=== PATIENT | female | born 1985 | race African-American/Black ===

== ENCOUNTER 2017-12-29 08:36 | Emergency (ER) | payer BC, OTHER ==
[~2017-12-29] VITALS: Ht 162.6 cm; Wt 68.0 kg
[~2017-12-29 08:36] MED LIST: ACETAMINOPHEN500 M1 PO; DERMOPLAST SPRA56 ML SPRAY; IBUPROFEN 600600 M1 PO; LANOLIN HYDROUS28 GM TOP; NORCO 5-325 TA1 EACH PO; PRENATAL COMPL1 EACH PO; TUCKS MEDICATE1 EAC1 TOP; ZOFRAN ODT4 MG PO
[2017-12-29 09:09] LABS: HEMATOCRIT 35.2 % (37.0-47.0); HEMOGLOBIN 11.6 gm/dL (12.0-15.0); MCH 27.5 pg (26.0-34.0); MCHC 33.1 g/dL (28.0-37.0); MCV 83.1 fL (80.0-100.0); RBC 4.23 mil/uL (4.20-5.00); RDW 17.3 % (10.5-14.5); WBC 8.5 thou/uL (4.0-11.0)
[2017-12-29 09:10] LABS: URINE BILIRUBIN NEGATIVE (Negative); URINE BLOOD 1+ (Negative); URINE CLARITY CLEAR; URINE COLOR YELLOW; URINE GLUCOSE-RANDOM* NEGATIVE (Negative); URINE KETONES NEGATIVE (Negative); URINE LEUKOCYTES-REFLEX NEGATIVE (Negative); URINE NITRITE-REFLEX NEGATIVE (Negative); URINE PROTEIN (DIPSTICK) NEGATIVE (Negative); URINE SPECIFIC GRAVITY >= 1.030 (1.005-1.035); URINE UROBILINOGEN 0.2 E.U./dl (0.2-1.0)
[2017-12-29 09:20] LABS: BACTERIA-REFLEX 1-9 Few /HPF (None Seen); CASTS None Seen /LPF (None Seen); CRYSTALS None Seen /LPF (None Seen); SQUAMOUS 0-3 Few /LPF (0-3); URINE RBC 0-2 Rare /HPF (0-2)
[2017-12-29 09:21] LABS: URINE WBC-REFLEX None Seen /HPF (0-5)
== END 2017-12-29 11:11 | disposition short-term general hospital (02) ==
LOC: ER 08:36
PROVIDERS: Emergency Medicine
DX: O46.91 Antepartum hemorrhage, unspecified, first trimester (principal); Z3A.01 Less than 8 weeks gestation of pregnancy

== ENCOUNTER 2018-01-04 03:05 | Emergency (ER) | payer BC, OTHER ==
[~2018-01-04] VITALS: Ht 162.6 cm; Wt 68.0 kg
[2018-01-04] MEDS ORDERED: TYLENOL325 MG PO (03:39)
[2018-01-04 03:44] LABS: HEMATOCRIT 31.3 % (37.0-47.0); HEMOGLOBIN 10.7 gm/dL (12.0-15.0); MCH 28.2 pg (26.0-34.0); MCHC 34.1 g/dL (28.0-37.0); MCV 82.6 fL (80.0-100.0); RBC 3.79 mil/uL (4.20-5.00); RDW 17.3 % (10.5-14.5); WBC 10.9 thou/uL (4.0-11.0)
[2018-01-04 03:55] LABS: CALCIUM 8.2 mg/dL (8.5-10.1); CREATININE 0.7 mg/dL (0.6-1.0); POTASSIUM 3.3 mmol/L (3.5-5.1)
[2018-01-04 04:01] LABS: ALBUMIN 3.4 g/dL (3.4-5.0); TOTAL BILIRUBIN 0.4 mg/dL (<0.1-1.0); TOTAL PROTEIN 7.4 g/dL (6.4-8.2)
== END 2018-01-04 05:15 | disposition home or self-care (01) ==
LOC: ER 03:05
PROVIDERS: Emergency Medicine
DX: O03.9 Complete or unspecified spontaneous abortion without complication (principal)